=== PATIENT | male | born 1995 | race Caucasian/White ===

== ENCOUNTER 2017-03-13 20:29 | Emergency (ER) | payer OTHER ==
[2017-03-13 20:35] VITALS: RESP 20; TEMP 98.1
[2017-03-13] MEDS ORDERED: DOXYCYCLINE HYCLATE 100 MG CAP/TAB PO ONE (20:53)
--- NOTE | 2017-03-13 20:55 | EDPHY ---
H & P Time Seen by Provider: 03/13/17 20:38 HPI/ROS: CHIEF COMPLAINT: Left toe crush injury HISTORY OF PRESENT ILLNESS: 21-year-old male with up-to-date tetanus accidentally dropped a 75 lb dumbbell onto his left foot, specifically left great toe sustaining crush injury while he was wearing shoes. Occurred shortly prior to arrival. He is able to bear weight albeit with pain. No history of chronic skin infections or history of known MRSA. PRIMARY CARE PROVIDER: REVIEW OF SYSTEMS: A ten point review of systems was performed and is negative with the exception of the items mentioned in the HPI PHYSICAL EXAM (Prior to examination, patient consented to physical exam, hands were washed and my usual and customary physical exam procedures followed) 1) GENERAL: Well-developed, well-nourished, alert and oriented. Appears to be in no acute distress. 2) HEAD: Normocephalic 3) HEENT: sclera anicteric 4) LUNGS: Breathing comfortably. 5) SKIN: left great toenail avulsion with underlying nail bed laceration measuring 1.5 cm, irregular. Brisk capillary refill Smoking Status: Never smoked Constitutional: Initial Vital Signs Temperature (C) 36.7 C 03/13/17 20:32 Heart Rate 74 03/13/17 20:32 Respiratory Rate 20 03/13/17 20:32 Blood Pressure 134/81 H 03/13/17 20:32 O2 Sat (%) 95 03/13/17 20:32 O2 Delivery Mode Room Air Allergies/Adverse Reactions: loracarbef [From Lorabid] Allergy (Verified 03/13/17 20:31) vahe Allergy (Verified 08/30/16 12:58) pistachio nut Allergy (Verified 08/30/16 12:58) tree nut [Nuts] Allergy (Verified 08/30/16 12:58) Home Medications: Medication Instructions Recorded EPINEPHRINE [EPIPEN] 0.3 mg IM ONCE #2 syr 08/30/16 Effexor 08/30/16 traZODone 08/30/16 Hydrocodone/APAP 5/325 [[place] 1 tab PO Q6 PRN #7 tab 03/13/17 5/325 (RX)] Lamictal 03/13/17 Sulfamethox/Tmp 800/160 mg 1 tab PO BID@1000,2200 5 Days 03/13/17 [Bactrim Ds] MDM/Departure - MDM Diagnostics: Imaging Impressions Toe X-Ray 03/13/17 20:52 Impression: Distal tuft fracture. Procedures: Procedure: Laceration repair. I explained the indications, risks and benefits for both laceration repair and anesthetic administration. Verbal consent was obtained from the patient . The laceration on the left great toe nail bed was anesthetized using 0.5% bupivicaine without epinephrine digital nerve block. After anesthetic administered the patient was observed for a period of time and had no apparent adverse effects. The wound was cleaned, prepped, draped in normal sterile fashion and explored to its base. No foreign body seen, no foreign bodies palpated. The wound was repaired with 5 simple interrupted 5 0 Vicryl sutures. The nail is then replaced. The wound repair was complex. The procedure was performed by myself. Patient has been informed that scarring will occur, although efforts have been made to minimize this. Procedure: Splint A phillip tape and postop shoe splint was applied by ER pathological technician. After application of the splint I returned and re-examined the patient. The splint was adequately immobilizing the joint and distal to the splint the patient's circulation and sensation were intact. Patient shows no signs of compartment syndrome. Was given orthopedic precautions. Medications Given: Discontinued Medications Doxycycline Hyclate (Doxycycline Hyclate) 100 mg PO EDNOW ONE PRN Reason: Protocol Stop: 03/13/17 20:54 Last Admin: 03/13/17 21:25 Dose: Not Given Trimethoprim/Sulfamethoxazole (Bactrim Ds) 1 ea PO EDNOW ONE PRN Reason: Protocol Stop: 03/13/17 21:22 Last Admin: 03/13/17 21:25 Dose: 1 ea - Depart Disposition: Home, Routine, Self-Care Clinical Impression: Laceration of nail bed of toe Qualifiers: Encounter type: initial encounter Qualified Code(s): S91.219A - Laceration without foreign body of unspecified toe(s) with damage to nail, initial encounter Nail avulsion, toe Qualifiers: Encounter type: initial encounter Qualified Code(s): S91.209A - Unspecified open wound of unspecified toe(s) with damage to nail, initial encounter Condition: Good Instructions: Nail Avulsion (ED) Additional Instructions: Return to the ER if you develop redness, swelling, discharge, warmth to the wound, red streaks going up your leg, or any other symptoms that concern you. Prescriptions: Hydrocodone/APAP 5/325 [Licking 5/325 (RX)] 1 tab PO Q6 PRN #7 tab PRN Reason: Pain, Severe Sulfamethox/Tmp 800/160 mg [Bactrim Ds] 1 tab PO BID@1000,2200 5 Days Referrals: Ezra Calvin DPM [Doctor of Podiatric Medicine] - 1-2 days without fail ( Dr. Calvin is a bulk tank driver)
[2017-03-13] MEDS ORDERED: SULFAMETHOX/TMP 800/160 MG 1 TAB PO ONE (21:21)
[2017-03-13] MEDS ORDERED: SULFAMET/TMP DS PREPACK#2 BTL TAKEHOME ONE (21:57)
[2017-03-13] MEDS ORDERED: OXYCODONE/APAP 5/325MG PREPACK#4 BTL TAKEHOME ONE (21:57)
[2017-03-13 22:24] VITALS: BP 124/84; PULSE 78; O2SAT 98
== END 2017-03-13 22:26 | disposition home or self-care (01) ==
PROC: 0HQRXZZ Repair Toe Nail, External Approach (ICD-10-PCS; principal; 2017-03-13)
DX: S91.212A Laceration without foreign body of left great toe with damage to nail, initial encounter (principal); W20.8XXA Other cause of strike by thrown, projected or falling object, initial encounter; Y93.89 Activity, other specified
CPT/HCPCS: L3260

== ENCOUNTER 2017-04-20 09:52 | Emergency (ER) | payer OTHER ==
--- NOTE | 2017-04-20 10:55 | EDPHY ---
H & P Time Seen by Provider: 04/20/17 09:57 HPI/ROS: CHIEF COMPLAINT: Paronychia HISTORY OF PRESENT ILLNESS: 21-year-old male presents emergency department complaining of left great toe pain. 5 weeks ago the patient dropped a heavy brick on his foot and had a broken toe. He was seen in the emergency department and had a nail bed repair with sutures placed and his toenail was placed back. Patient did really well with decreased pain until 2 days ago when his skin around his toe no became red inflamed and tender. Patient reports purulent discharge. He denies fevers or chills. Smoking Status: Never smoked Physical Exam: GEN: Awake, alert, oriented, no acute distress RESP: nl resp effort MSK: Full range of motion of left great toe SKIN: Erythema, swelling and tenderness surrounding toenail of left great toe Constitutional: Initial Vital Signs Temperature (C) 36.5 C 04/20/17 09:57 Heart Rate 70 04/20/17 09:57 Respiratory Rate 16 04/20/17 09:57 Blood Pressure 136/64 H 04/20/17 09:57 O2 Sat (%) 99 04/20/17 09:57 O2 Delivery Mode Room Air Allergies/Adverse Reactions: loracarbef [From Lorabid] Allergy (Verified 03/13/17 20:31) vahe Allergy (Verified 08/30/16 12:58) pistachio nut Allergy (Verified 08/30/16 12:58) tree nut [Nuts] Allergy (Verified 08/30/16 12:58) Home Medications: Medication Instructions Recorded EPINEPHRINE [EPIPEN] 0.3 mg IM ONCE #2 syr 08/30/16 Effexor 08/30/16 traZODone 08/30/16 Lamictal 03/13/17 Cephalexin [Keflex] 500 mg PO QID 5 Days 04/20/17 MDM/Departure - MDM Procedures: Procedure nail removal: Left great toe prepped with alcohol, allowed to dry followed by chlorhexidine allowed to dry. Subsequent ring block was placed. Approximately 5 mL as above 0.5% Marcaine slowly injected to toe. Needle was withdrawn intact. No complications were noted.. Good anesthesia was obtained. Great toenail was loosened from the nail bed with blunt dissection utilizing sterile scissors there and removed intact without complication. Patient tolerated the procedure well. - Depart Disposition: Home, Routine, Self-Care Clinical Impression: Paronychia Qualifiers: Laterality: left Qualified Code(s): L03.012 - Cellulitis of left finger Condition: Good Instructions: Paronychia (ED) Additional Instructions: Take 500 mg of Keflex 4 times a day for 5 days, soak your toe in warm water 4 times a day for 10-15 minutes. Return to the emergency department for any worsening symptoms, fevers. Prescriptions: Cephalexin [Keflex] 500 mg PO QID 5 Days Referrals: MYLA MEADE [Other] - As per Instructions
[2017-04-20 11:38] VITALS: BP 140/71; PULSE 62; RESP 18; TEMP 97.5; O2SAT 98
== END 2017-04-20 11:37 | disposition home or self-care (01) ==
PROC: 0HDRXZZ Extraction of Toe Nail, External Approach (ICD-10-PCS; principal; 2017-04-20)
DX: L03.032 Cellulitis of left toe (principal)